=== PATIENT | male | born 1990 | race Native Hawaiian/Other Pacific Islander ===

== ENCOUNTER → 2019-09-25 | Emergency (ER) | payer OTHER ==
[~2019-09-25] VITALS: Ht 190.5 cm; Wt 79.4 kg
[~2019-09-25] MED LIST: NORCO 5-325 TA1 EAC1 PO
[2019-09-25 17:00] VITALS: BP 132/89
== END ==
LOC: ER 14:17
DX: S62.395A Other fracture of fourth metacarpal bone, left hand, initial encounter for closed fracture (principal); Z88.0 Allergy status to penicillin; W22.8XXA Striking against or struck by other objects, initial encounter; Y93.89 Activity, other specified; Y92.89 Other specified places as the place of occurrence of the external cause; Y99.8 Other external cause status